=== PATIENT | female | born 1960 | race Caucasian/White ===

== ENCOUNTER → 2016-09-19 | Outpatient (CLI) | payer MEDICAID ==
[~2016-09-19] MED LIST: LORA-154; RA; SIMV-8; [UNRECOGNIZED DRUG - CODE]
== END | disposition home or self-care (01) ==
LOC: Rad HDHVI 10:20
PROVIDERS: ATTEND Internal Medicine Cardiovascular Disease
DX: M16.0 Bilateral primary osteoarthritis of hip (principal); M85.80 Other specified disorders of bone density and structure, unspecified site